=== PATIENT | female | born 1995 | race African-American/Black ===

== ENCOUNTER 2017-05-01 19:59 | Emergency (ER) | payer OTHER ==
[~2017-05-01] VITALS: Ht 162.6 cm; Wt 64.4 kg
[2017-05-01 22:13] LABS: BASO # 0.1 K/mm3 (0.0-0.2); BASO % 0.6 % (0.0-1.0); EOS # 0.1 K/mm3 (0.0-0.50); EOS % 1.3 % (0.0-3.0); LARGE UNSTAINED CELL # 0.2 K/mm3 (0.0-0.4); LARGE UNSTAINED CELL % 2.3 % (0.0-4.0); LYMPH # 1.5 K/mm3 (1.5-6.5); MEAN CORPUSCULAR HEMOGLOBIN 20.1 pg (27.0-33.0); MEAN CORPUSCULAR HGB CONC 28.3 g/dl (32.0-36.5); MEAN CORPUSCULAR VOLUME 70.8 fl (80.0-96.0); MONO # 0.5 K/mm3 (0.0-0.8); MONO % 4.7 % (0.0-5.0); NEUTROPHILS # 7.4 K/mm3 (1.8-7.7); NEUTROPHILS % 76.1 % (36.0-66.0); PLATELET COUNT, AUTOMATED 443 k/mm3 (150-450); RED CELL DISTRIBUTION WIDTH 18.2 % (11.5-14.5); WHITE BLOOD COUNT 9.8 K/mm3 (4.0-10.0)
[2017-05-01 22:15] LABS: ADD MORPHOLOGY? YES
[2017-05-01 22:26] LABS: ANISOCYTOSIS 2+; HYPOCHROMASIA 2+; MICROCYTOSIS 2+
[2017-05-01 22:27] LABS: SCHISTOCYTES 1+; TEAR DROP CELLS 1+
[2017-05-01 22:28] LABS: POLYCHROMASIA 1+
[2017-05-01] MEDS ORDERED: FLAG500T PO (23:57)
[2017-05-02] MEDS ORDERED: metroNIDAZOLE (FLAGYL) 500 MG TAB PO ONE
--- NOTE | 2017-05-02 01:20 | REPUSA ---
CLINICAL HISTORY: Vaginal bleeding. TECHNIQUE: Endovaginal ultrasound of the pelvis was performed. FINDINGS: Uterus is normal in size measuring 8.7x4.6x5.6 cm. Intrauterine gestational sac measuring 10.3x6.8x10.7 mm. Mean gestational sac diameter is 9.3 mm. This corresponds to an estimated gestational age of 5 weeks and 5 days. No pole is identified. No cardiac activity is detected. The right ovary 5.5 x2.6x4.2 cm with a normal flow. There is a complex hemorrhagic corpus luteum cyst measuring 3.2x2.9x2.4 cm. The left ovary measures 2.1x2.2x1.3 cm. Trace amount of free fluid is noted in the posterior cul-de-sac. IMPRESSION: Trace amount of free fluid in the pelvis. Intrauterine gestational sac. No pole is seen. Complex hemorrhagic corpus luteum cyst of the right ovary.
[2017-05-02 01:28] VITALS: BP 120/75
== END 2017-05-02 01:27 | disposition home or self-care (01) ==
LOC: M ED 19:59
DX: O23.591 Infection of other part of genital tract in pregnancy, first trimester (principal); Z3A.01 Less than 8 weeks gestation of pregnancy

== ENCOUNTER 2017-05-27 22:32 | Emergency (ER) | payer OTHER ==
[~2017-05-27] VITALS: Ht 162.6 cm; Wt 61.3 kg
[~2017-05-27 22:32] MED LIST: FLAG500T PO
[2017-05-28] MEDS ORDERED: METOCLOPRAMIDE INJ 10MG/2ML VIAL (J2765) IV ONE (02:30)
[2017-05-28] MEDS ORDERED: NS 1,000 ML IV ONE (02:30)
[2017-05-28 03:29] LABS: BASO % 0.3 % (0.0-1.0); EOS # 0.2 K/mm3 (0.0-0.50); LARGE UNSTAINED CELL # 0.3 K/mm3 (0.0-0.4); LARGE UNSTAINED CELL % 1.8 % (0.0-4.0); LYMPH # 1.5 K/mm3 (1.5-6.5); LYMPH % 7.9 % (24.0-44.0); MEAN CORPUSCULAR HEMOGLOBIN 21.9 pg (27.0-33.0); MEAN CORPUSCULAR HGB CONC 31.3 g/dl (32.0-36.5); MONO % 6.6 % (0.0-5.0); NEUTROPHILS # 12.6 K/mm3 (1.8-7.7); NEUTROPHILS % 82.4 % (36.0-66.0); PLATELET COUNT, AUTOMATED 328 k/mm3 (150-450); RED CELL DISTRIBUTION WIDTH 18.7 % (11.5-14.5); WHITE BLOOD COUNT 15.3 K/mm3 (4.0-10.0)
[2017-05-28 03:34] LABS: ADD MORPHOLOGY? YES
[2017-05-28 03:36] LABS: HYPOCHROMASIA 1+; MICROCYTOSIS 2+
[2017-05-28 03:45] LABS: ALBUMIN 3.8 GM/DL (3.2-5.2); ALKALINE PHOSPHATASE 68 U/L (45-117); ALT/SGPT 31 U/L (12-78); ANION GAP 12 MEQ/L (8-16); AST/SGOT 18 U/L (15-37); BILIRUBIN,DIRECT 0.2 MG/DL (0.0-0.2); BILIRUBIN,TOTAL 0.6 MG/DL (0.2-1.0); BLOOD UREA NITROGEN 12 MG/DL (7-18); CARBON DIOXIDE LEVEL 24 MEQ/L (21-32); CHLORIDE LEVEL 102 MEQ/L (98-107); CREATININE FOR GFR 0.55 MG/DL (0.55-1.02); GLOMERULAR FILTRATION RATE > 60.0 (>60); GLUCOSE, FASTING 92 MG/DL (70-105); POTASSIUM SERUM 3.3 MEQ/L (3.5-5.1); SODIUM LEVEL 138 MEQ/L (136-145)
[2017-05-28] MEDS ORDERED: REGL10TA6 PO (03:53)
[2017-05-28 04:05] VITALS: BP 119/56
== END 2017-05-28 04:13 | disposition home or self-care (01) ==
LOC: M ED 22:32
DX: O21.0 Mild hyperemesis gravidarum (principal); Z3A.01 Less than 8 weeks gestation of pregnancy
CPT/HCPCS: 80048; 80076; 85025; 96374; 99283; J2765

== ENCOUNTER 2018-11-21 13:31 | Emergency (ER) | payer OTHER ==
[~2018-11-21] VITALS: Ht 162.6 cm; Wt 68.2 kg
[~2018-11-21 13:31] MED LIST changes: +REGL10TA6 PO
[2018-11-21] MEDS ORDERED: ONDANSETRON 4 MG ORAL DISINTEGRATING TAB (Q0162 PER 1MG) PO ONE (16:15)
[2018-11-21 16:36] LABS: BASO % 0.3 % (0.0-1.0); HEMATOCRIT 36.5 % (36.0-47.0); HEMOGLOBIN 11.9 g/dl (12.0-15.5); LYMPH # 1.3 10^3/uL (1.5-6.5); LYMPH % 9.9 % (24.0-44.0); MEAN CORPUSCULAR HEMOGLOBIN 27.2 pg (27.0-33.0); MEAN CORPUSCULAR HGB CONC 32.6 g/dl (32.0-36.5); MEAN CORPUSCULAR VOLUME 83.3 fl (80.0-96.0); MONO # 0.7 10^3/uL (0.0-0.8); MONO % 5.5 % (0.0-5.0); NEUTROPHILS # 11.2 10^3/uL (1.8-7.7); NEUTROPHILS % 83.9 % (36.0-66.0); PLATELET COUNT, AUTOMATED 372 10^3/uL (150-450); RED BLOOD COUNT 4.38 10^6/uL (4.00-5.40); WHITE BLOOD COUNT 13.4 10^3/uL (4.0-10.0)
[2018-11-21 16:59] LABS: BLOOD UREA NITROGEN 8 MG/DL (7-18); CALCIUM LEVEL 9.1 MG/DL (8.5-10.1); CARBON DIOXIDE LEVEL 26 MEQ/L (21-32); CHLORIDE LEVEL 101 MEQ/L (98-107); CREATININE FOR GFR 0.65 MG/DL (0.55-1.30); GLOMERULAR FILTRATION RATE > 60.0 (>60); GLUCOSE, FASTING 87 MG/DL (70-100); POTASSIUM SERUM 3.3 MEQ/L (3.5-5.1); SODIUM LEVEL 134 MEQ/L (136-145)
[2018-11-21] MEDS ORDERED: ONDA4TAB6 PO (17:10)
[2018-11-21 17:14] VITALS: BP 107/72
== END 2018-11-21 17:18 | disposition home or self-care (01) ==
LOC: M ED 13:31
DX: N93.9 Abnormal uterine and vaginal bleeding, unspecified (principal)
CPT/HCPCS: 80048; 85025; 99283; Q0162

== ENCOUNTER 2018-12-16 01:06 | Emergency (ER) | payer OTHER ==
[~2018-12-16] VITALS: Ht 162.6 cm; Wt 68.2 kg
[~2018-12-16 01:06] MED LIST changes: +ONDA4TAB6 PO
[2018-12-16] MEDS ORDERED: NS 1,000 ML IV ONE (02:00)
[2018-12-16] MEDS ORDERED: METOCLOPRAMIDE INJ 10MG/2ML VIAL (J2765) IV ONE (02:00)
[2018-12-16 02:08] LABS: BASO % 0.3 % (0.0-1.0); EOS % 0.1 % (0.0-3.0); HEMATOCRIT 38.5 % (36.0-47.0); LYMPH # 1.3 10^3/uL (1.5-6.5); LYMPH % 11.3 % (24.0-44.0); MEAN CORPUSCULAR HEMOGLOBIN 26.9 pg (27.0-33.0); MEAN CORPUSCULAR HGB CONC 33.8 g/dl (32.0-36.5); MEAN CORPUSCULAR VOLUME 79.5 fl (80.0-96.0); MONO # 1.5 10^3/uL (0.0-0.8); MONO % 13.8 % (0.0-5.0); NEUTROPHILS # 8.3 10^3/uL (1.8-7.7); NEUTROPHILS % 74.1 % (36.0-66.0); PLATELET COUNT, AUTOMATED 351 10^3/uL (150-450); RED BLOOD COUNT 4.84 10^6/uL (4.00-5.40); WHITE BLOOD COUNT 11.1 10^3/uL (4.0-10.0)
[2018-12-16 02:51] LABS: ALBUMIN 3.8 GM/DL (3.2-5.2); ALT/SGPT 36 U/L (12-78); BILIRUBIN,DIRECT 0.2 MG/DL (0.0-0.2); BILIRUBIN,TOTAL 0.7 MG/DL (0.2-1.0); BLOOD UREA NITROGEN 10 MG/DL (7-18); CALCIUM LEVEL 9.5 MG/DL (8.5-10.1); CARBON DIOXIDE LEVEL 24 MEQ/L (21-32); CHLORIDE LEVEL 98 MEQ/L (98-107); CREATININE FOR GFR 0.53 MG/DL (0.55-1.30); GLOMERULAR FILTRATION RATE > 60.0 (>60); GLUCOSE, FASTING 102 MG/DL (70-100); HCG, SERUM QUANTITATIVE 126157 MIU/ML; LIPASE 530 U/L (73-393); SODIUM LEVEL 133 MEQ/L (136-145); TOTAL PROTEIN 8.3 GM/DL (6.4-8.2)
[2018-12-16] MEDS ORDERED: POTASSIUM CHLORIDE 10 MEQ SR TABLET PO ONE (03:00)
[2018-12-16] MEDS ORDERED: REGL10TA6 PO (03:36)
[2018-12-16 03:44] VITALS: BP 135/93
== END 2018-12-16 03:45 | disposition home or self-care (01) ==
LOC: M ED 01:06
DX: R11.10 Vomiting, unspecified (principal); R00.0 Tachycardia, unspecified; R53.83 Other fatigue
CPT/HCPCS: 36415; 80048; 80076; 81001; 81025; 83690; 84702; 85025; 87086; 96374; 99284; J2765

== ENCOUNTER 2019-02-01 13:19 | Emergency (ER) | payer OTHER ==
[~2019-02-01] VITALS: Ht 162.6 cm; Wt 75.0 kg
[2019-02-01 15:42] VITALS: BP 136/82
--- NOTE | 2019-02-01 16:56 | REP ---
STAT obstetric ultrasound for dropping quantitative HCG levels: There is a single intrauterine gestation in a vertex presentation. heart rate is 153 beats per minute. There is motion. The placenta is anterior without previa or abruptio and with grade zero maturity. The amniotic fluid volume subjectively is normal. The cervix measures 2.8 cm in length. By today's ultrasound the gestational age is 17 weeks 3 days/BRIAN 07/09/2019. weight is 183 grams/0 pounds, 6 ounces. This is the 35th percentile for 17 weeks 3 days. The following anatomic structures are identified and are unremarkable. Intracranial lateral ventricles, choroid plexus, cerebellum, cisterna magna, facial profile, upper lip, cardiac right and left ventricular outflow tracts, diaphragm, left-sided stomach, cord insertion, three-vessel cord, kidneys, bladder, spine and upper lower extremities. There is an adequate four-chamber view of the heart. There is an echogenic focus in the left ventricle, likely cordae tendinea artifact. Impression: No anomalies are identified. There is an echogenic focus in the cardiac left ventricle as described. Electronically Signed by Derrell Salinas MD 02/01/2019 04:47 P
--- NOTE | 2019-02-02 16:08 | ED PDOC ---
Post-Departure Follow-Up ft woody rocha faxed formal report og obs us for fu Ruthy French MD Feb 02, 2019 16:08
== END 2019-02-01 16:05 | disposition home or self-care (01) ==
LOC: M ED 13:19
DX: O26.892 Other specified pregnancy related conditions, second trimester (principal); Z3A.17 17 weeks gestation of pregnancy

== ENCOUNTER → 2019-04-17 | Outpatient (CLI) | payer OTHER ==
--- NOTE | 2019-04-17 17:41 | REP ---
OB ULTRASOUND: Real-time sonographic evaluation of the gravid uterus is performed. There is a single living intrauterine gestation. The estimated gestational age is 28 weeks 1 day, EDC 07/09/2019. Today's measurements indicate appropriate growth. BPD 71 mm = 28 weeks 4 days, at the 59th percentile. HC 271 mm = 29 weeks 4 days, at the 82nd percentile. AC 242 mm = 28 weeks 3 day, at the 56th percentile. Femur length 55 mm = 29 weeks 0 days, at the 69th percentile. HC/AC ratio 1.12 within normal range. Estimated weight 1278 grams, 57th percentile. heart rate 147 beats per minute. SD ratio 2.92 and RI 0.66 within normal range. SEEN/GROSSLY UNREMARKABLE Lateral ventricles Yes Posterior fossa Yes Upper lip Yes Four-chamber heart Echogenic focus in left ventricle likely related to cordae tendinea. LVOT Yes RVOT Yes Stomach Yes Cord insertion Yes Three vessel cord Yes Kidneys Yes Bladder Yes Spine Yes position: Vertex. Placenta: Anterior and grade 1 with no previa or abruption. Amniotic fluid: Within normal limits. Cervix is closed and measures 3.2 cm in length. Electronically Signed by Derrell Puga MD 04/18/2019 04:16 P
== END ==
LOC: M RAD 14:15
PROVIDERS: ATTEND Nurse Practitioner Women's Health
DX: Z36.89 Encounter for other specified antenatal screening (principal); Z3A.28 28 weeks gestation of pregnancy